=== PATIENT | female | born 1960 | race Caucasian/White ===

== ENCOUNTER 2018-03-17 21:12 | Inpatient (IN) | payer OTHER ==
[~2018-03-17] VITALS: Ht 149.9 cm; Wt 109.3 kg
[~2018-03-17 21:12] MED LIST: AUG500 PO; AZITHROMYCIN IV; CLA10 PO; IPRATROPIUM BROM3 M2 HHN; LAC PO; LEV500 PO; LEVOTHYROXINE0.05 M2 PO; MEDDP PO; PRE20 PO; SING10 PO; SYN5 PO
[2018-03-17 22:26] LABS: BASOPHIL % 0.6 % (0-2); PLATELET COUNT 298 x10^3mcL (130-400)
[2018-03-17 22:28] LABS: RED CELL DISTRIBUTION WIDTH 15.1 % (11.5-14.5)
[2018-03-17 22:40] LABS: CALCIUM 8.9 mg/dL (8.5-10.1); CARBON DIOXIDE 34.8 mmol/L (21-32); CREATININE SERUM 1.6 mg/dL (0.6-1.0); POTASSIUM SERUM 4.1 mmol/L (3.5-5.1)
[2018-03-17 22:45] LABS: ALBUMIN 3.6 g/dL (3.4-5.0); BILIRUBIN TOTAL 0.2 mg/dL (0.20-1.00); TOTAL PROTEIN, SERUM 7.3 g/dL (6.4-8.2)
[2018-03-17 22:49] LABS: LIPASE 100 IU/L (73-393)
[2018-03-17] MEDS ORDERED: ADULT ASPIRIN R81 MG PO (23:04)
[2018-03-17] MEDS ORDERED: GABAPENTIN300 M4 PO (23:04)
[2018-03-17] MEDS ORDERED: NAPRELAN375 MG PO (23:04)
[2018-03-17] MEDS ORDERED: SULFAMETHOXAZOL1 TA3 PO (23:05)
[2018-03-17] MEDS ORDERED: AMOXICILLIN500 MG PO (23:05)
[2018-03-17] MEDS ORDERED: LEVOTHYROXIN0.125 M2 PO (23:05)
[2018-03-17] MEDS ORDERED: ZESTRIL20 MG PO (23:05)
[2018-03-17] MEDS ORDERED: FLOVENT HF0.044 MG/1 INH (23:06)
[2018-03-17] MEDS ORDERED: VENTOLIN H0.09 MG/A1 INH (23:06)
[2018-03-17 23:40] LABS: MAGNESIUM 2.2 mg/dL (1.8-2.4); PHOSPHOROUS 3.5 mg/dL (2.5-4.9)
[2018-03-17 23:41] LABS: CHOLESTEROL/HDL RATIO 4.1
[2018-03-17 23:44] LABS: T3 TOTAL 0.08 ng/mL
[2018-03-17 23:49] LABS: FREE T4 0.16 ng/dL (0.76-1.46)
[2018-03-17 23:53] LABS: FREE THYROXINE INDEX 0.1 ug/dL (1.4-4.5); T4(THYROXINE) < 0.5 ug/dL (4.7-13.3)
[2018-03-18 00:11] VITALS: BP 193/98
[2018-03-18] MEDS ORDERED: HCTZ/LISINOPRIL1 TA1 PO (00:21)
[2018-03-18 00:58] VITALS: BP 193/98
[2018-03-18 04:11] LABS: microscopic required? YES; urine erythrocyte 1+ (NEGATIVE)
[2018-03-18 04:18] LABS: AMPHETAMINE QUAL UR POSITIVE (See below)
[2018-03-18 05:59] VITALS: BP 140/82
[2018-03-18 06:29] LABS: BASOPHIL % 0.2 % (0-2); PLATELET COUNT 307 x10^3mcL (130-400); RED CELL DISTRIBUTION WIDTH 14.4 % (11.5-14.5)
[2018-03-18 06:52] LABS: CALCIUM 8.8 mg/dL (8.5-10.1); CARBON DIOXIDE 33.9 mmol/L (21-32); CREATININE SERUM 1.5 mg/dL (0.6-1.0); POTASSIUM SERUM 4.2 mmol/L (3.5-5.1)
[2018-03-18 09:34] VITALS: BP 141/61
[2018-03-18 13:33] VITALS: BP 147/66
[2018-03-18 17:49] VITALS: BP 149/74
== END 2018-03-18 20:33 | disposition left against medical advice (07) | DRG 140 ==
LOC: ED 21:12 → DU 22:57
PROVIDERS: Emergency Medicine; Internal Medicine
PROC: 5A09357 Assistance with Respiratory Ventilation, Less than 24 Consecutive Hours, Continuous Positive Airway Pressure (ICD-10-PCS; principal; 2018-03-18)
DX: J44.1 Chronic obstructive pulmonary disease with (acute) exacerbation (principal); N17.0 Acute kidney failure with tubular necrosis; J96.21 Acute and chronic respiratory failure with hypoxia; E03.9 Hypothyroidism, unspecified; E78.49 Other hyperlipidemia; R73.03 Prediabetes; J96.22 Acute and chronic respiratory failure with hypercapnia; F15.10 Other stimulant abuse, uncomplicated; Z53.21 Procedure and treatment not carried out due to patient leaving prior to being seen by health care provider; F17.210 Nicotine dependence, cigarettes, uncomplicated; E78.5 Hyperlipidemia, unspecified; D63.8 Anemia in other chronic diseases classified elsewhere; I16.0 Hypertensive urgency; E66.01 Morbid (severe) obesity due to excess calories; Z79.82 Long term (current) use of aspirin; Z99.81 Dependence on supplemental oxygen; Z68.42 Body mass index [BMI] 45.0-49.9, adult; Z88.0 Allergy status to penicillin; Z88.8 Allergy status to other drugs, medicaments and biological substances; Z71.6 Tobacco abuse counseling; Z87.442 Personal history of urinary calculi; Z82.49 Family history of ischemic heart disease and other diseases of the circulatory system; Z79.899 Other long term (current) drug therapy; Z79.51 Long term (current) use of inhaled steroids
CPT/HCPCS: 36600; 83880; 84439; 99406; G0480; J1956; J2405; J2920; J2930; J3475; J3490; J7030; J7613; J7620; J7626; J7644; Q0092

== ENCOUNTER 2019-01-17 11:04 | Inpatient (IN) | payer OTHER ==
[~2019-01-17] VITALS: Ht 149.9 cm; Wt 105.0 kg
[~2019-01-17 11:04] MED LIST changes: +ADULT ASPIRIN R81 MG PO; +AMOXICILLIN500 MG PO; +FLOVENT HF0.044 MG/1 INH; +GABAPENTIN300 M4 PO; +HCTZ/LISINOPRIL1 TA1 PO; +LEVOTHYROXIN0.125 M2 PO; +NAPRELAN375 MG PO; +SULFAMETHOXAZOL1 TA3 PO; +VENTOLIN H0.09 MG/A1 INH; +ZESTRIL20 MG PO
[2019-01-17 11:10] VITALS: Ht 149.9 cm; Wt 105.0 kg
--- NOTE | 2019-01-17 11:25 | NUR ---
PT CAME TO THE ED TODAY WITH CO SOB SINCE THIS AM. PT STATES SHE HAS A HX OF COPD AND IS A CURRENT SMOKER. PT USES AT HOME OXYGEN AND IS ON 2.5 LITERS. PT STATES SHE HAS A COLD AND HAS A HARD TIME " GETTING IT ALL UP." AT THIS TIME PT RESP RATE AT 24RPM AND IS SPEAKING IN BROKEN SPEECH AT THIS TIME. LUNG SOUNDS ARE DIMINISHED THROUGH OUT. PT IS AWAKE AND ALERT. FAMILY AT BEDSIDE. PT HOOKED UP TO FULL MONITORS, EKD BEING DONE AT BEDSIDE, WILL CONTINUE TO MONITOR.
--- NOTE | 2019-01-17 11:40 | NUR ---
BREATHING TX IN PROGRESS
[2019-01-17 11:50] LABS: BASOPHIL % 0.4 % (0-2); PLATELET COUNT 350 x10^3mcL (130-400); RED CELL DISTRIBUTION WIDTH 14.3 % (11.5-14.5)
[2019-01-17 11:59] LABS: CALCIUM 8.8 mg/dL (8.5-10.1); CARBON DIOXIDE 35.6 mmol/L (21-32); CREATININE SERUM 1.1 mg/dL (0.6-1.0); POTASSIUM SERUM 4.5 mmol/L (3.5-5.1)
[2019-01-17 12:03] LABS: ALBUMIN 3.2 g/dL (3.4-5.0); BILIRUBIN TOTAL 0.2 mg/dL (0.20-1.00); TOTAL PROTEIN, SERUM 6.9 g/dL (6.4-8.2)
--- NOTE | 2019-01-17 12:41 | NUR ---
DR BASHIR AT BEDSIDE DISCUSSING RESULTS AND PLAN OF CARE
[2019-01-17] MEDS ORDERED: GABAPENTIN600 M1 PO (12:47)
[2019-01-17] MEDS ORDERED: LIPI20 PO (12:48)
--- NOTE | 2019-01-17 14:09 | NUR ---
REPORT GIVEN THI HOROWITZ ON MS/T FOR FURTHER CARE OF PT. PER DR MCKAY BLANCHARD TO SEND TO MS/T WITHOUT URINE SAMPLE
--- NOTE | 2019-01-17 14:26 | NUR ---
PT EN ROUTE TO MST AT THIS TIME WITH EMT TERE Rahman
[2019-01-17 14:48] VITALS: BP 157/86
--- NOTE | 2019-01-17 14:51 | NUR ---
RECEIVED PT FROM ED VIA DREW. ORIENTED PT TO ROOM AND SURROUNDINGS. IV NOTED TO LFA PATENT AND INTACT. INSTRUCTED PT ON THE USE OF CALL LIGHT FOR ASSISTANCE. ENDORSED PT TO PRIMARY NURSE THI
[2019-01-17 15:27] VITALS: BP 156/74
--- NOTE | 2019-01-17 17:55 | NUR ---
PATIENT IN BED AT THIS TIME. EATING DINNER TRAY. PATIENT COMPLAITS OF MILD WOODS, PRN TYLENOL GIVEN. IV SOLUMEDROL ALSO GIVEN. PATIENT BP SLIGHTLY ELEVATED TO SBP 156, WILL ENDORSE TO ONCOMING NURSE AND WILL CALL DR LAM, UNABLE TO PULL PO LISINOPRIL FROM PYXIS AT THIS TIME. CALL LIGHT IN REACH AT THIS TIME
[2019-01-17 17:58] VITALS: BP 169/92
--- NOTE | 2019-01-17 19:28 | NUR ---
DURING BEDSIDE DALY OFF, CHECKED PATIENT BP WAS 160/90, MAP-112. PATIENT COMPLAINED OF WOODS. DR LAM INFORMED AND RECEIVED ONE TIME ORDER FOR LISINOPRIL. LINDA FOLLOW UP WITH PHARMACY.
[2019-01-17 19:29] VITALS: BP 160/92
--- NOTE | 2019-01-17 20:28 | NUR ---
PATIENT IS ALERT AND ORIENTED X4, NO DIZZINESS NOR HEADACHE. BREATHING EVEN AND UNLABORED,BS EXPIRATORY WHEEZING A/P UPPER LOBES AND DIMINISHED BASES, PATIENT STATES OCC NON PRODUCTIVE COUGH, MILD EXERTIONAL SOB NOTED, O2 AT 2LNC MAINTAINED SAT 96%. DENIED CHEST PAINS, HR=86BPM. NON TELE, MED/SURG. AMBULATORY WITH STEADY SLOW GAIT, NEEDS ANTICIPATED, ABLE TO PARTICIPATE WITH ADL'S. IV SITE RFA PATENT AND INTACT, TAPE SECURED.DENIED PAIN. PATIENT INFORMED ABOUT POC THIS SHIFT. SAFETY PRECAUTIONS MAINTAINED. WILL CONTINUE TO MONITOR.
[2019-01-17 20:42] VITALS: BP 168/85
--- NOTE | 2019-01-17 20:53 | NUR ---
SCHEDULED MEDS ADMINISTERED, PATIENT INFORMED ABOUT ACTIONS AND PURPOSE PRIOR. PATIENT TOOK PILLS WELL. WILL RE-CHECK BP POST LISINOPRIL GIVEN.
[2019-01-17 22:06] VITALS: BP 152/88
--- NOTE | 2019-01-18 00:04 | NUR ---
ROUNDS MADE PATIENT RESTING COMFORTABLY THIS TIME, O2 AT 2LNC MAINTAINED. NO DISTRESS. SAFETY/FALL PRECAUTIONS MAINTAINED. WILL CONTINUE TO MONITOR.
[2019-01-18 05:40] VITALS: BP 134/76
[2019-01-18 06:29] LABS: CALCIUM 8.4 mg/dL (8.5-10.1); CARBON DIOXIDE 30.6 mmol/L (21-32); CHLORIDE SERUM 102 mmol/L (98-107); GFR1 > 60 mL/min; GLUCOSE SERUM 148 mg/dL (74-106); POTASSIUM SERUM 4.9 mmol/L (3.5-5.1); SODIUM SERUM 140 mmol/L (136-145)
--- NOTE | 2019-01-18 06:36 | NUR ---
PATIENT SLEPT GOOD AND RESTED COMFORTABLY DURING THE SHIFT. NO RESP. DISTRESS AT REST, MILD EXERTIONAL SOB NOTED AND VERBALIZED, TOLERATED O2 AT 2LNC WITH SAT 96-98%. HEPLOCK TO RFA PATENT AND INTACT DUAL CAP APPLIED, TAPE SECURED. VOIDED X2 BUT UNABLE TO SAVE SPECIMEN, ADVICED TO CALL NURSE WHEN SHE VOIDS FOR SPECIMEN COLLECTION. SAFETY/FALL PRECAUTION OBSERVED AND MAINTAINED. WILL ENDORSE CONTINUITY OF CARE TO INCOMING NURSE.
[2019-01-18 06:49] LABS: BASOPHIL % 0.1 % (0-2); PLATELET COUNT 378 x10^3mcL (130-400); RED CELL DISTRIBUTION WIDTH 14.3 % (11.5-14.5)
--- NOTE | 2019-01-18 07:25 | NUR ---
BEDSIDE HANDS OFF AND INTRODUCTION PERFORMED WITH INCOMING NURSE THI-CARLOS MANUEL.
--- NOTE | 2019-01-18 07:49 | NUR ---
RECEIVED PATIENT FROM CARLOS MANUEL SANDERSON. PATIENT SEATED AT BEDSIDE. NO COMPLAINTS OF SOB AT THIS TIME. INFORMED PATIENT OF PLAN FOR TODAY AND PATIENT AGREES. WILL WAIT FOR DR RODRIGUEZ AND DR LAM TO COME IN AND SEE PATIENT. PATIENT VERBALIZES UNDERSTANDING, CALL LIGHT IN REACH. PATIENT CLOSE TO NURSES STATION.
[2019-01-18 08:30] LABS: UA SPECIFIC GRAVITY 1.015 (1.005-1.035); microscopic required? YES; urine erythrocyte 1+ (NEGATIVE)
[2019-01-18 09:12] VITALS: BP 146/79
[2019-01-18 15:59] VITALS: BP 124/67
--- NOTE | 2019-01-18 18:10 | NUR ---
PATIENT SEATED UP TO BED, EATING DINNER TRAY. NO COMPLAINTS AT THIS TIME, EXPIRATORY WHEEZES AUDIBLE. PATIENT CONTINUES TO HAVE O2 SAT AROUND 92%. WILL ENDORSE TO ONCOMING NURSE. CALL LIGHT IN REACH.
[2019-01-18 19:54] VITALS: BP 123/67
--- NOTE | 2019-01-18 19:56 | NUR ---
PATIENT RECEIVED IN BED SLEEPING AND SNOORING EASILY AWAKEN WHEN VERBAL STIMULI,SLEEPY STATED BY PATIENT, SPEECH CLEAR. NO RESP. DISTRESS, BREATHING EVEN AND UNLABORED, MILD EXERTIONAL SOB STATED, FOUND ON 2LNC SAT 94-95%, WITH OCCD NON PRODUCTIVE COUGH, BS EXPIRATORY WHEEZING A&P UPPER LOBES AND DIMINISHED AIR EXCHANGE TO LOWER LOBES. ON SITTING POSITION. HEPLOCK TOP RFA CLEAR, TAPE SECURED, DUAL CAP APPLIED. PATIENT IS AMBULATORY WITH SLOW STEADY GAIT. DENIED ANY DISCOMFORTS THIS TIME. PATIENT INFORMED ABOUT PLAN OF CARE THIS EVENING. ALSO UPDATED WHITE BOARD AND INFORMED ABOUT TEST AND GOAL THIS SHIFT. SAFETY/FALL PRECAUTIONS MAINTAINED. WILL CONTINUE TO MONITOR.
--- NOTE | 2019-01-18 21:36 | NUR ---
SCHEDULED MEDS ADMINISTERED, PATIENT INFORMED ABOUT MEDS ACTIONS AND PURPOSE PRIOR. TOOK PILLS WELL. ALSO REQUEST FOR INSOMNIA PILL MEDICATED PRN.
--- NOTE | 2019-01-18 21:37 | NUR ---
PATIENT ACCIDENTALLY PULLED HEPLOCK TO RT FA, INSERTED TO LEFT FA.
[2019-01-19 06:14] VITALS: BP 176/91
--- NOTE | 2019-01-19 06:20 | NUR ---
DR LAM MADE AWARE ABOUT AM YZ=213/91, HTV=361, INFORMED THAT 0900 SCHEDULED LISINOPRIL GIVEN. MD ANGULO.
--- NOTE | 2019-01-19 06:47 | NUR ---
PATIENT SLEPT OFF AND ON DURING THE SHIFT, NO RESP. DISTRESS ENCOUNTERED, O2 AT 2LNC MAINTAINED AND SATURATING BETWEEN 95-97%. HEPLOCK TO LEFT FOREARM FLUSHED WELL WITH NS, SECURED TAPE. ASSISTED OOB TO THE BR WITH SLOW STEADY GAIT AND WITH O2. SAFETY/FALL PRECAUTIONS MAINTAINED. WILL ENDORSE CONTINUITY OF CARE TO INCOMING NURSE.
--- NOTE | 2019-01-19 07:17 | NUR ---
RECEIVED REPORT FROM MARIA E HOROWITZ. PATIENT RESTING COMFORTABLY IN BED WITH ALL NEEDS MET. SALINE LOCK TO LFA IS PATENT AND INTACT. NO REDNESS OR PAIN. PATIENT ON O2 2L NC. NO C/O SOB AND NO DISTRESS NOTED. ALL QUESTIONS AND CONCERNS ADDRESSED.
--- NOTE | 2019-01-19 07:28 | NUR ---
BEDSIDE HANDS OFF AND INTRODUCTION PERFORMED WITH INCOMING NURSE ANDREAS.
[2019-01-19 09:32] VITALS: BP 142/93
[2019-01-19 16:38] VITALS: BP 152/84
[2019-01-19 17:14] VITALS: BP 152/84
--- NOTE | 2019-01-19 19:28 | NUR ---
REPORT GIVEN TO ROCIO HOROWITZ. PATIENT RESTING COMFORTABLY IN BED. IV TO LAC IS PATENT AND INTACT. NO REDNESS OR PAIN. PT ON O2 2L NC. NO C/O SOB AND NO DISTRESS NOTED. ALL QUESTIONS AND CONCERNS ADDRESSED.
--- NOTE | 2019-01-19 20:35 | NUR ---
PT RECIEVED AAO REG RESP NO SOB ON 2L N/C SAT 97%,PT OBESES WITH ACTIVE BOWEL SOUNDS,KEPT CLEAN AND DRY TO TOUCH.IV INFFUSING WELL WITH THE SITE PATENT AND INTACT,HOB,ABDO IS SOFT OBESE WITH ACTIVE BOWEL SOUNDS.CALL LIGHT EASY REACHED AND WILL CONTINUE TO MONITOR.
[2019-01-19 21:02] VITALS: BP 149/87
[2019-01-20 05:55] VITALS: BP 189/83
--- NOTE | 2019-01-20 06:10 | NUR ---
PT WITH C/O OF H/A ARCHING IN NATURE AT THE SCALE OF 5,PT WAS MEDICATED WITH TYLENOL 650 MG PO ORDER AND WILL CONTINUE TO MONITOR.
[2019-01-20 07:02] VITALS: BP 164/88
--- NOTE | 2019-01-20 07:35 | NUR ---
PT RESTING AT THIS TIME,ON 2L N/C SAT 93%,DIMINISHED TO THE LOWER BASES ON RT PROTOCOL,BED IN THE LOW POSITION AND LOCKED,KEPT CLEAN AND DRY TO TOUCH,MADE COMFORTABLE IN BED AND WILL CONTINUE TO MONITOR.
[2019-01-20 09:29] VITALS: BP 167/75
--- NOTE | 2019-01-20 11:05 | NUR ---
RECEIVED BEDSIDE REPORT FROM CARLOS MANUEL CHAN. PT IN BED, WATCHING TV, FAMILY MEMBER BY BEDSIDE. NO ACUTE RESPIRATORY DISTRESS, PAIN, OR DISCOMFORT NOTED. PT EXPRESSED THAT SHE WANTS TO GO HOME ALCIDES. EXPLAINED TO PT THAT D/C ORDERS HAVE BEEN GIVEN, AND PAPERWORK WILL BE PROCESSED ACCORDINGLY. WILL CONTINUE TO MONITOR.
[2019-01-20 11:58] VITALS: BP 167/75
--- NOTE | 2019-01-20 12:55 | NUR ---
PT GIVEN DISCHARGE PACKET. DISCUSSED CURRENT STAY, INCLUDING MEDS, LABS, AND TEACHINGS RE: LACTIC ACID TEST, BP MONITORING, DIET, EXERCISE. ALL D/C FORMS SIGNED. ID BANDS REMOVED, IV REMOVED FROM LAC, 22G, CATH TIP INTACT, SITE NO S/S INFECTION OR BLEEDING. PT THEN TRANSPORTED TO [facility] VIA W/C WHILE ON 2LNC; PT A/A/O X 4, CALM, COOPERATIVE, NO ACUTE RESPIRATORY DISTRESS, PAIN, OR DISCOMFORT NOTED.
== END 2019-01-20 12:55 | disposition home or self-care (01) | DRG 140 ==
LOC: ED 11:04 → MU 12:46
PROVIDERS: Emergency Medicine; ADMIT Internal Medicine
DX: J44.1 Chronic obstructive pulmonary disease with (acute) exacerbation (principal); J96.01 Acute respiratory failure with hypoxia; E66.01 Morbid (severe) obesity due to excess calories; E03.9 Hypothyroidism, unspecified; E78.5 Hyperlipidemia, unspecified; M19.90 Unspecified osteoarthritis, unspecified site; I10 Essential (primary) hypertension; F17.210 Nicotine dependence, cigarettes, uncomplicated; Z99.81 Dependence on supplemental oxygen; Z68.41 Body mass index [BMI] 40.0-44.9, adult; Z88.6 Allergy status to analgesic agent; Z88.0 Allergy status to penicillin; Z87.01 Personal history of pneumonia (recurrent); Z79.899 Other long term (current) drug therapy
CPT/HCPCS: 36600; 99406; G0378; J0132; J0456; J1956; J2060; J2920; J2930; J7030; J7050; J7613; J7620; J7644; Q0092

== ENCOUNTER 2019-07-12 00:27 | Inpatient (IN) | payer OTHER ==
[~2019-07-12] VITALS: Ht 149.9 cm; Wt 113.4 kg
[~2019-07-12 00:27] MED LIST changes: +GABAPENTIN600 M1 PO; +LIPI20 PO
--- NOTE | 2019-07-12 01:25 | NUR ---
PT PRESENTS TO ED WITH C/C PROD COUGH AND CHEST DISCOMFORT X3 DAY. PT STS HX COPD AND USES 2L O2 VIA NC AT HOME 24HRS A DAY. DENIES FEVER. STS GOT A COLD A FEW DAYS AGO AND THE SYMTPOMS BEGAN TO WORSEN. DAUGHTER AT BEDSIDE, STS PATIENTS 02 RAN OUT WHILE IN THE WAITING ROOM. PT
--- NOTE | 2019-07-12 01:26 | NUR ---
DRY COUGH NOTED. PATIENT PLACED ON 6L NC PATIENTS O2 SAT 96%. RT CALLED AT THIS TIME FOR BREATHING TX. PATIENT AAOX4. RR TACHYPENIC 26. CONNECTED TO FULL MONITOR. AWAITING MSE.
--- NOTE | 2019-07-12 01:34 | NUR ---
RT AT BEDSIDE.
[2019-07-12 02:30] LABS: BASOPHIL % 0.1 % (0-2); PLATELET COUNT 393 x10^3mcL (130-400)
[2019-07-12 02:42] LABS: rbc morphology (normal/abnorm) ABNORMAL (NORMAL)
[2019-07-12 02:44] LABS: CALCIUM 9.1 mg/dL (8.5-10.1); CARBON DIOXIDE 37.6 mmol/L (21-32); CREATININE SERUM 1.3 mg/dL (0.6-1.0); POTASSIUM SERUM 4.1 mmol/L (3.5-5.1)
[2019-07-12 02:49] LABS: ALBUMIN 3.4 g/dL (3.4-5.0); BILIRUBIN TOTAL 0.27 mg/dL (0.20-1.00); TOTAL PROTEIN, SERUM 7.1 g/dL (6.4-8.2)
--- NOTE | 2019-07-12 03:49 | NUR ---
PT RESTING IN POSITION OF COMFORT. STS " I FEEL LIKE I CAN BREATHE BETTER NOW."
--- NOTE | 2019-07-12 05:37 | NUR ---
REPORT GIVEN TO CARLOS MANUEL POPE TO ASSUME CARE.
[2019-07-12 06:03] VITALS: BP 149/58
--- NOTE | 2019-07-12 06:13 | NUR ---
PT ARRIVED ONTO UNIT VIA GUERNEY ACCOMPANIED BY ED STAFF. A/OX4. BREATHING EVEN AND UNLABORED ON 6L NC. NO SOB OR RESP DISTRESS NOTED. REPORTS PROD COUGH W/ YELOW SPUTUM. NO COUGH NOTED DURING ASSESSMENT. DENIES CHEST PAIN/PRESSURE. TELE #27 NSR. IV TO THE LH, SALINE LOCK. PATENT AND INTACT. NO REDNESS OR SWELLING NOTED. BLE/BUE TRACE PITTING EDEMA NOTED. PULSES PALPABLE X4. REPORTS MILD HEADACHE AND NAUSEA, BUT TOLERABLE. EXP WHEEZES HEARD BILATERALLY. WHEELCHAIR AT BASELINE. SEIZURE PRECAUTIONS IN PLACE FOR HX OF SEIZURES. PATIENT REPORTS LAST SEIZURE WAS WHEN SHE WAS 11 YRS OLD. ADMITS TO METH USE; LAST USE WAS 3 DAYS AGO PER PT. PT REPORTS SO RESORTS TO METH WHEN SHE RUNS OUT OF ALBUTEROL. ORIENTED PATIENT TO ROOM, CALL LIGHT SYSTEM, AND BED CONTROLS. COMFORT AND SAFETY MEASURES IN PLACE. BED IS LOCKED AND IN THE LOWEST POSITION. REPORTS HEMATURIA, DENIES DSYURIA. BLE ERYTHEMA NOTED. NO OPEN WOUNDS. WILL ENDORSE CARE TO DAY SHIFT RN
[2019-07-12 06:48] VITALS: BP 146/70
--- NOTE | 2019-07-12 08:00 | NUR ---
PATIENT RECEIVED VERY SLEEPY AND DOES NOT APPEAR IN ANY PAIN AT THIS TIME.
[2019-07-12 08:52] VITALS: BP 181/79
--- NOTE | 2019-07-12 10:19 | NUR ---
FOUND PATIENT SITTING IN BED, CRYING AND HOLDING HEAD IN HANDS. PATIENT SAID THAT WOODS IS VERY SEVERE AND ALSO SHE IS VERY SENSITIVE TO LIGHT. SHE REQUESTED TO HAVE LIGHTS OFF. BP CHECKED -143/83( MAP-103), HR-65. DR LAM INFORMED ABOUT PATIENTS CONDITIONS. RECEIVED ORDER FOR HEAD CT NON CONTRAST. ATTENDING NURSE FELICITAS MADE AWARE. WILL MEDICATE PATIENT.
--- NOTE | 2019-07-12 10:40 | NUR ---
PATIENT RECEIVED VERY LETHARGIC AND WITH HISTORY OF RECENT METH USE. IAN JOLLYS DIMINISHED BREATH SOUNDS AND IS GROSSLY OBESE WITH HER HEAD DOWN AND HER CHIN TOUCHING HER CHEST. SHE HAS COMPLAINTS OF PAIN BUT DUE TO THE LETHARGY AND SHE QUICKLY IS FALLING ASLEEP STAFF FELT THAT A NARCOTIC IS UNNECESSARY AND CONTRAINDICATED AT THIS TIME. PATIEUNT HS EDEMA GENERAL TO THE BODY AND THE REDNESS THE WAS REPORTED TO LEGS THIS AM IS NO LONGER PRESENT TO TALK PICTURES OF. PATIENT HAS BEEN WITH WHEELCHAIR AT HOME AND 02 2 LITERS AT HOME SHE WAS GIVEN HER MEDICATIONS AND SHE NOW IS COMPLAINING OF FEELING FUNNY. SHE COULD NOT TELL THE NURSE WITHOUT FALLING ASLEEP AGAIN WHAT SHE WAS FEELING AND STAFF HAD TO KEEP WAKING HER UP TO GIVE THE MEDICATIONS AND TALK ABOUT HER HISTORY. VITALS AT THIS TIME 98.7, 79, 18, 181/79, 99%.
--- NOTE | 2019-07-12 11:08 | NUR ---
CHARGE NURSE CALLED DR LAM FOR COMPLAINTS OF BAD HEADACHE. ORDERS RECEIVED. PATIENT GIVEN TYLENOL FOR PAIN PATIENT IS TOO LETHARGIC AND FALLING ASLEEP TO GIVE ANYTHING STRONGER AT THIS TIME. SHE HAS NO SIGNS OF MENIGITIS SHE HAS HER HEAD TO HER CHEST WITHOUT DISCOMFORT AND IS FALLING ASLEEP AND SNEEDS TO BE SHAKEN TO AWAKE TO GET MEDICATIONS. HER BP IS NOW WNL AND WILL CONTINUE TO MONITOR INDICATED.
--- NOTE | 2019-07-12 12:22 | NUR ---
ATTEMPTED GET ANSWERS ABOUT HER GABAPENTIN BUT PATIENT IS TOO SLEEPY TO ANSWER AT THIS TIME. LET THE PHARMACY KNOW PROGRESS.
[2019-07-12 12:39] VITALS: BP 154/71
[2019-07-12 13:23] LABS: IRON 22 ug/dL (50-170); TOTAL IRON BINDING CAPACITY 507 ug/dL (250-450)
[2019-07-12 13:31] LABS: RED BLOOD CELLS 3.23 M/mm3 (4.10-5.10)
--- NOTE | 2019-07-12 13:47 | NUR ---
PATIENT MORE ALERT NOW AND RESPONDS TO VERBAL QUES. PATIENT HAS BEEN EATTING ASND SHE HAD GOOD RELIEF WITH JUST TYLENOL. WILL CONTINUE TO MONITOR.
--- NOTE | 2019-07-12 14:43 | NUR ---
PATIENT IS SUPPOSE TO GO FOR CT BUT NOW AGAIN SHE IS LETHARGIC AND DIFFICULT TO ARROUSE.
[2019-07-12 17:37] VITALS: BP 154/70
[2019-07-12 18:29] LABS: UA SPECIFIC GRAVITY 1.025 (1.005-1.035); microscopic required? YES; urine erythrocyte 3+ (NEGATIVE)
--- NOTE | 2019-07-12 18:37 | NUR ---
WAS TAKEN TO CT AND RETURNED AND STATES SOB. CALLED FOR BREATHING TREATMENT AND BACK ON THE 6 LITERS OF 02 VIA NASAL CANNULA. PATIENT IS SLOWLY GOING UP ON SATURATION. AWAITING RESULTS OF THE CT AT THIS TIME.
[2019-07-12 18:49] LABS: AMPHETAMINE QUAL UR POSITIVE (See below)
--- NOTE | 2019-07-12 19:25 | NUR ---
RECEIVED PT RESTING IN BED, NO ACUTE DISTRESS NOTED. PT LETHARGIC YET EASY TO AROUSE. HX OF SZ, PRECAUTIONS IN PLACE. TELE #27, NSR W/ DEPRESSED ST SEG, DENIES CP. PT REPORTS CP WITH COUGHING. DENIES PAIN AT THIS TIME. BLE 1+ PITTING EDEMA, BLE RUBOR NOTED ([place]). RESP EVEN AND UNLABORED ON 4LNC, DENIES SOB. PT HAS PRODUCTIVE COUGH. EXP WHEEZE NOTED. ABD SOFT, ROUND, OBESE PT. PT REPORTS HX OF CONSTIPATION. PT VOIDS FREELY, REPORTING BLOOD IN URINE. PT COORELATING THE BLOOD FROM A PREVIOUS HERNIA REPAIR WITH MESH. PT (+) DYSURIA. GENERALIZED WEAKNESS, W/C AT BASELINE. PT REPORTS PAIN UNDER CONTROL. IV SITE PATENT TO THE LT HAND, SALINE LOCKED. NO REDNESS, SWELLING OR PAIN NOTED. ALL COMFORT AND SAFETY MEASURES PROVIDED FOR, CALL LIGHT WITHIN REACH, BED IN LOWEST POSITION, WILL CONTINUE TO MONITOR.
[2019-07-12 20:57] VITALS: BP 138/69
--- NOTE | 2019-07-12 23:15 | NUR ---
MEDICATED PT WITH AMBIEN PER REQUEST FOR INSOMNIA, PT DENIES SOB/CP AT THIS TIME. CALL LIGHT WITHIN REACH, BED IN LOWEST POSITION, WILL CONTINUE TO MONITOR.
--- NOTE | 2019-07-13 05:00 | NUR ---
PT RESTED IN INTERVALS DURING SHIFT, NO ACUTE CHANGES OCCURRING OVERNIGHT. PT REMAINS ON 4LNC HUMIDIFICIED O2. DENIES SOB. PT REMAINS VERY LETHARGIC, PRODCUTIVE COUGH NOTED. IV SITE REMAINS PATENT, NO REDNESS, SWELLING OR PAIN NOTED. ALL COMFORT AND SAFETY MEASURES PROVIDED FOR, CALL LIGHT WITHIN REACH, BED IN LOWEST POSITION, WILL CONTINUE TO MONITOR.
[2019-07-13 05:37] VITALS: BP 144/77
--- NOTE | 2019-07-13 06:30 | NUR ---
INSERTED 24 G IV TO THE LEFT FA, PT TOLERATED WELL. FLUSHING WELL. CALL LIGHT WITHIN REACH, BED IN LOWEST POSITION, WILL CONTINUE TO MONITOR.
[2019-07-13 07:00] LABS: BASOPHIL % 0.1 % (0-2)
--- NOTE | 2019-07-13 07:10 | NUR ---
RECEIVED PT FROM MUSICAL INSTRUMENT MAKER RN. Bhavesh/MACIE. TELE#27. DENIES CHEST PAIN/PRESSURE. RESPIRATIONS EQUAL AND UNLABORED ON 4L NC. DENIES SOB AT THIS TIME. NOTED DRY COUGH. PT DENIES ANY SECRETIONS. PT SITTING UP WITH HOB ELEVATED. BREATHING TREATMENT BEING DONE. PT C/O ABDOMINAL PAIN PRESSURE /10. PT STATES ABDOMINAL PAIN HAS BEEN CONSTANT SINCE HERNIA SURGERY LAST YEAR. DENIES ANY N/V. IV TO LFA SALINE LOCKED. NO REDNESS OR SWELLING NOTED. SEIZURE PRECAUTIONS IN PLACE. WILL CONTINUE TO MONITOR. CALL LIGHT IN REACH. BED IN LOWEST POSITION.
[2019-07-13 07:21] LABS: PLATELET COUNT 406 x10^3mcL (130-400); RED CELL DISTRIBUTION WIDTH 19.9 % (11.5-14.5)
[2019-07-13 07:38] LABS: CALCIUM 8.9 mg/dL (8.5-10.1); CARBON DIOXIDE 35.2 mmol/L (21-32); CREATININE SERUM 1.1 mg/dL (0.6-1.0); POTASSIUM SERUM 4.5 mmol/L (3.5-5.1)
[2019-07-13 09:02] VITALS: BP 132/72
--- NOTE | 2019-07-13 09:56 | NUR ---
PT SITTING IN BED. NO ACUTE DISTRESS NOTED. ADMIN AM MEDS. IV INFUSING WELL, NO REDNESS OR SWELLING. DRESSING CDI. DR. LAM AT BEDSIDE. PER DR. LAM OK TO DISCHARGE PT TODAY. PT STATES RIDE WON'T BE AVAILABLE UNTIL 1400. WILL CONTINUE TO MONITOR. CALL LIGHT IN REACH. BED IN LOWEST POSITION.
--- NOTE | 2019-07-13 12:53 | NUR ---
PT SITTING UP IN BED. PT EATING LUNCH. NO ACUTE RESP DISTRESS NOTED ON 4L NC. PT STATES MY GIRLFRIEND WILL BE HERE BETWEEN 1PM AND 2PM. PT ASKING TO WAIT TO GO OVER DISCHARGE PAPERWORK ONCE GIRLFRIEND IS HERE. WILL CONTINUE TO MONITOR. CALL LIGHT IN REACH. BED IN LOWEST POSITION.
[2019-07-13 12:56] VITALS: BP 131/57
[2019-07-13 13:37] VITALS: BP 118/77
--- NOTE | 2019-07-13 14:01 | NUR ---
PT SITTING UP IN BED. GIRLFRIEND AT BEDSIDE. PT GIVEN DISCHARGE INSTRUCTIONS. PT EDUCATED TO RETURN TO ER IF ANY WORSENING SYMPTOMS OF SOB, FEVER, COUGH OR CHEST PAIN. PT EDUCATED ON PRESCRIPTION AND FOR PREDNISONE, TAMIFLU. PT ENCOURAGED TO TAKE HOME MEDICATIONS PRESCRIBED. PT C/O HAVING HEMATURIA SINCE THE PAST YEAR. PT STATES "I WAS REFERRED TO SPECIALIST BY MY PRIMARY DOCTOR." ENCOURAGED PT TO FOLLOW UP WITH SPECIALIST REGARDING ISSUE. ENCOURAGED PT TO FOLLOW UP WITH PCP WITHIN 1 WEEK OF DISCHARGE. PT AND GIRLFRIEND VERBALIZED UNDERSTANDING. ALL QUESTIONS AND CONCERNS ADDRESSED. IV TO LFA REMOVED CATHETER INTACT. PT TAKEN OFF FLOOR VIA WHEELCHAIR WITH HOME OXYGEN. NO PROBLEMS ENCOUNTERED.
[2019-07-14 12:16] VITALS: Ht 149.9 cm; Wt 113.4 kg
== END 2019-07-13 14:13 | disposition home or self-care (01) | DRG 140 ==
LOC: ED 00:27 → DU 04:03
PROVIDERS: Emergency Medicine; ADMIT Internal Medicine
DX: J44.1 Chronic obstructive pulmonary disease with (acute) exacerbation (principal); J96.01 Acute respiratory failure with hypoxia; Z99.81 Dependence on supplemental oxygen; F41.9 Anxiety disorder, unspecified; G40.909 Epilepsy, unspecified, not intractable, without status epilepticus; E03.9 Hypothyroidism, unspecified; I10 Essential (primary) hypertension; R51 Headache; D64.9 Anemia, unspecified; F17.210 Nicotine dependence, cigarettes, uncomplicated; Z88.0 Allergy status to penicillin; Z88.8 Allergy status to other drugs, medicaments and biological substances; N39.0 Urinary tract infection, site not specified
CPT/HCPCS: 83880; 87804; 99406; G0378; J1956; J2920; J2930; J3535; J7050; J7613; J7620; Q0092

== ENCOUNTER 2019-10-01 15:58 | Inpatient (IN) | payer OTHER, SELFPAY ==
[~2019-10-01] VITALS: Ht 152.4 cm; Wt 97.4 kg
[2019-10-01 16:12] VITALS: Ht 152.4 cm; Wt 97.4 kg
--- NOTE | 2019-10-01 16:55 | NUR ---
FIRST CONTACT WITH PT. PT IS ALERT. NO SEVERE RESP DISTRESS OBSERVED.
[2019-10-01 17:02] LABS: BASOPHIL % 0.4 % (0-2); PLATELET COUNT 345 x10^3mcL (130-400)
[2019-10-01 17:03] LABS: RED CELL DISTRIBUTION WIDTH 18.2 % (11.5-14.5)
--- NOTE | 2019-10-01 17:28 | NUR ---
USE BEDPAN, ABLE TO OBTAIN SMALL URINE SPEC. CONTINUES ALERT. VSS
[2019-10-01 18:01] LABS: ALBUMIN 3.5 g/dL (3.4-5.0); BILIRUBIN TOTAL 0.12 mg/dL (0.20-1.00); CALCIUM 9.1 mg/dL (8.5-10.1); CREATININE SERUM 1.3 mg/dL (0.6-1.0); POTASSIUM SERUM 3.2 mmol/L (3.5-5.1); TOTAL PROTEIN, SERUM 6.9 g/dL (6.4-8.2)
[2019-10-01 18:05] LABS: CARBON DIOXIDE 44.7 mmol/L (21-32)
[2019-10-01 18:06] LABS: C REACTIVE PROTEIN 0.5 mg/dL (<=0.9)
--- NOTE | 2019-10-01 18:11 | NUR ---
PT SITS UP IN HUTSON'S POSITONS POSITION. ALERT. REQUEST TO EAT, ER DR AWARE AND SAID NOT CURRENTLY, DUE TO ABG ABNORMALITY.
[2019-10-01 18:41] LABS: microscopic required? YES; urine erythrocyte 2+ (NEGATIVE)
--- NOTE | 2019-10-01 18:47 | NUR ---
PULSE OXYMETRY SHOWING POOR READING. NEW SAT MONITOR APPLIED TO LEFT 5TH DIGIT. MUCH BETTER READING APPEARS AT 99 %. PT CONTINUES TO SIT UP. ALERT. PT STATES SHE DOESN'T FEEL WELL, FEELS LETHARGIC. SPEAKS IN CLEAR SENTENCES. SKIN DRY.
--- NOTE | 2019-10-01 18:58 | NUR ---
IN LIEU OF PT DISCLOSING SHE HAS COPD, O2 WAS BROUGHT DOWN TO 2 LITER. NASAL CANULA. SAT READS AT 99%. CONTINUES TO SIT UP IN FOLWER'S POSITION
--- NOTE | 2019-10-01 19:06 | NUR ---
REPORT GIVEN TO BACKROOM ASSOCIATE STAFF AT THIS TIME
--- NOTE | 2019-10-01 19:37 | NUR ---
PATIENT SEEN DROWSY, EASILY AROUSED, VERBALLY APPROPIATE. PATIENT IS USING 2 LITERS OXYGEN VIA N/C, SATURATION 99%.
--- NOTE | 2019-10-01 19:48 | NUR ---
PATIENT NHAS MILD DYSPNES AT REST, SKIN IN MOTTLED AND FINGER AND TOES ARE PURPLISH. RESPIRATORY NWAS CALLED TO PUT THE PATIENT ON A BIPAP. PATIENT WILL GO TO T1.
--- NOTE | 2019-10-01 20:42 | NUR ---
REPORT WAS GIVEN TO BRI. PATIENT TRANSPORTED TO ROOM TRAUMA 1.
--- NOTE | 2019-10-01 20:51 | NUR ---
PT TRANSPORTED TO ED BED T1. REPORT RECIEVED FROM CARLOS MANUEL LIRA. PT MOVED IN ORDER TO PLACE PT ON BIPAP PER MD. MOVED TO T1 WITH COVID PRECAUTIONS IN PLACE AND FOR NEGATIVE PRESSURE ROOM. RT RAFY AT BEDSIDE TO PLACE PT ON BIPAP. PT IS AWAKE AND ALERT, RESP E/U, SPEAKING AND CONVERSING IN FULL SENTENCES. REPORTS THAT SHE DOES FEEL TIRED. WILL CONTINUE TO MONITOR.
--- NOTE | 2019-10-01 21:00 | NUR ---
PLACED PATIENT ONTO BIPAP 14/7 RATE 20 FIO2 30. HEART RATE 65 SPO2 89.
--- NOTE | 2019-10-01 21:09 | NUR ---
SPOKE WITH RT RAFY SINCE PT IS COPD, KEEP PT ABOVE 88% O2 SAT ON BIPAP.
--- NOTE | 2019-10-01 21:35 | NUR ---
PT REQUESTED THAT WE CALL SIGNIFICANT OTHER EDUARDO TO GIVE HER AN UPDATE. SPOKE TO EDUARDO ON THE PHONE AND GAVE A BRIEF UPDATE.
--- NOTE | 2019-10-01 22:26 | NUR ---
PT ASSISTED TO BEDSIDE COMMODE AND RETURNED TO [facility] WITH NO INCIDENT. RT NOW AT BEDSIDE TO ADMINISTER MDI TREATMENT.
--- NOTE | 2019-10-01 22:50 | NUR ---
PT NOTED TO BE STANDING AT DOOR OF T1. APPROACHED ROOM AND ASKED PT TO SAFELY GET BACK INTO [place]. PT AMBULATED WITH STEADY GAIT TO SIT BACK IN GURNEY. PPE FRANCY, MYSELF AND RN BRI ASSISTED PT INTO COMFORTABLE HIGH FOWLERS POSITION. RT MIRNA AT BEDSIDE TO CHECK BIPAP. PT CONTINUES TO TOLERATE BIPAP. PT REMINDED TO NOT TO GET OUT OF BED AND TO USE CALL LIGHT IF SHE NEEDS ANYTHING. PT VERBALIZED UNDERSTANDING. PT HAS CALL LIGHT PHYSICALLY IN HAND AT THIS TIME. GUIDED PT THROUGH DEEP BREATHING TECHNIQUES. PT APPEARS TO BE MORE RELAXED S/P TALKING PT THROUGH HER WORRIES.
--- NOTE | 2019-10-01 23:58 | NUR ---
REPORT GIVEN TO CARLOS MANUEL SCANLON IN ICU.
--- NOTE | 2019-10-02 00:38 | NUR ---
RECEIVED PT FROM ED VIA DREW ACCOMPANIED BY RN, EMT AND RT. AOX4, SPEECH CLEAR. PERRLA. EVEN AND UNLABORED RESPIRATIONS, PLACED ON BIPAP BY RT: FIO2 30% RATE 20 IPAP 14 EPAP 7., TOLERATING WELL. DIMINISHED ON AUSCULTATION. PLACED ON CARDIAC MONITORING, READING SR 67, SATTING 98%. PULSES PRESENT, CAP REFILL < 3SECS, NO EDEMA NOTED, SKIN COOL, DRY TO TOUCH, MOTTLED TO BUE/BLE. PERIPHERAL IV TO LEFT HAND PATENT AND INTACT. VOIDS FREELY, ASSISTED WITH BEDPAN, YELLOW URINE NOTED. ABD SOFT, ROUND, OBESE. BOWELS SOUNDS ACTIVE, NO C/O N/V/D OR ABD PAIN. C/O PAIN TO BLE, STATES TAKES GABAPENTIN FOR PAIN, TOLERABLE AT THIS TIME. ORIENTED TO ROOM AND SURROUNDINGS. INSTRUCTED ON USE OF CALL LIGHT WHEN IN NEED OF ASSISTANCE. CONTACT AND DROPLET ISOLATION IN PLACE. BED IN LOWEST POSITION. SIDE RAILS UPX2. CALL LIGHT WITHIN REACH. WILL CONTINUE TO MONITOR.
[2019-10-02 01:06] VITALS: BP 159/84
[2019-10-02 01:24] VITALS: BP 153/87
--- NOTE | 2019-10-02 02:35 | NUR ---
K: 3.2, MD MADE AWARE, ORDERED RECEIVED AND MEDICATION ADMINISTERED. SANDWICH AND WATER PROVIDED. PLACED ON 4LNC AT THIS TIME, TOLERATING WELL SATTING 96%.
--- NOTE | 2019-10-02 03:03 | NUR ---
ASSISTED PT TO BED [place], SMALL AMOUNT OF CLOUDY YELLOW URINE NOTED. PT ON 4LNC SATTING 99%, REFUSING BIPAP AT THIS TIME, NO C/O SOB OR PAIN. WILL CONTINUE TO MONITOR
--- NOTE | 2019-10-02 03:34 | NUR ---
PT RESTING COMFORTABLY IN BED WITH EYES CLOSED. EASILY AROUSABLE. NO ACUTE DISTRESS NOTED. EVEN AND UNLABORED RESPIRATIONS ON 4LNC. SATTING 98%. ON CARDIAC MONITORING READING SR. NO S/S SOB OR PAIN AT THIS TIME. BED IN LOWEST POSITION. SIDE RAILS UPX2. CALL LIGHT WITHIN REACH. WILL CONTINUE TO MONITOR.
[2019-10-02 04:13] VITALS: BP 133/78
--- NOTE | 2019-10-02 05:12 | NUR ---
PT RESTING COMFORTABLY IN BED. NO ACUTE DISTRESS NOTED. C/O SORE THROAT MEDICATED PER EMAR. SCHEDULED MEDICATIONS GIVEN. EVEN AND UNLABORED RESPIRATIONS ON 4LNC, REFUSING BIPAP AT THIS TIME, STATES DOING FINE WITH NASAL CANNULA. SATTING 98%. ON HISTORIAN RESEARCH ASSISTANT READING SR. WILL CONTINUE TO MONITOR.
--- NOTE | 2019-10-02 06:51 | NUR ---
PLACED BACK ON BIPAP, RATE 20 FIO2 30% IPAP 14, EPAP 7. SATTING 95%, TOLERATING WELL. WILL ENDORSE TO ONCOMING SHIFT.
--- NOTE | 2019-10-02 07:57 | NUR ---
SPORTS MEDICINE PHYSICIAN PRESENT AT BEDSIDE.
[2019-10-02 08:15] VITALS: BP 142/81
--- NOTE | 2019-10-02 08:15 | NUR ---
RECEIVED REPORT FROM GHISLAINE DIRECTIONAL BORE OPERATOR NURSE. PT SITTING UPRIGHT IN BED ON BIPAP SP02: 93%. RESPIRATIONS EVEN AND UNLABORED. PT DENIES CHEST PAIN. HR: 67 S1 AND S2 AUSCULTATED. NO MURMUR NOTED. LHAND IV 20G INTACT ON TKO. PT IS ANXIOUS AT TIMES BUT CALM AND COOPERATIVE AT THE MOMENT. SKIN IS WARM/DRY. NO EDEMA NOTED. V/S STABLE, WILL CONTINUE TO MONITOR.
[2019-10-02 08:52] LABS: CALCIUM 9.5 mg/dL (8.5-10.1); CREATININE SERUM 1.2 mg/dL (0.6-1.0); MAGNESIUM 2.2 mg/dL (1.8-2.4); POTASSIUM SERUM 4.1 mmol/L (3.5-5.1)
[2019-10-02 08:54] LABS: BASOPHIL % 0 % (0-2); PLATELET COUNT 409 x10^3mcL (130-400); RED CELL DISTRIBUTION WIDTH 18.4 % (11.5-14.5)
--- NOTE | 2019-10-02 08:55 | NUR ---
DR CAPPS AT BEDSIDE TO ASSESS PATIENT. POC DISCUSSED BEDSIDE. DR CAPPS EDUCATED PATIENT REGARDING CESSATION OF SMOKING AND DISEASE PROCESS OF END STAGE LUNG DISEASE. PATIENT VERBALIZED AN UNDERSTANDING WITH QUESTIONS AND CONSERNS ADDRESSED.
--- NOTE | 2019-10-02 09:29 | NUR ---
LAURA TECH BRAZER TESTER INFORMED DR. LAM THAT PT WANTS TO LEAVE AMA. PT UNCOOPERATIVE AND STATES SHE DOES NOT WANT TO BE HERE. WILL AWAIT ORDERS.
--- NOTE | 2019-10-02 09:30 | NUR ---
CALLED AND SPOKE TO DR LAM ABOUT PT WANTING TO LEAVE AMA. DR LAM NOTIFIED AND MADE AWARE AT THIS TIME OF PT WISHES. PT EDUCATED ON RISKS OF LEAVING AGAINST MEDICAL ADVICE. 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 PT EDUCATED ON IMPORTANCE OF SELF ISOLATING UNTIL RESULTS OF COVID RETURN. PT VERBALIZED UNDERSTANDING AND AGREED TO SELF ISOLATE. PT EDUCATED ON RETURNING TO ER IF S/S WERE TO [place]. PT VERBALIZED UNDERSTANDNING AND STATED " I CAN SELF TREAT MYSELF AT HOME, I DONT NEED TO BE IN THE HOSPITAL. I WANT YOU TO CALL M[facility]IAM TO PICK ME UP". [facility] TO BE CALLED AT THIS TIME
--- NOTE | 2019-10-02 09:41 | NUR ---
BEAU CALLED AND NOTIFIED OF PTS WISHED TO LEAVE AMAOscar YANEZ TO ARRIVE AT HOSPITAL SHORTLY.
--- NOTE | 2019-10-02 10:20 | NUR ---
REMOVED PIV WITH CATHETER INTACT. NO ERTHYEMA/INFLAMMATION/PAIN NOTED. PT EDUCATED AGAIN ON IMPORTANCE OF SELF ISOLATING UPON ARRIVAL TO HOME AND TO CONTINUE WITH HOME 02. PT EDUCATED ON IMPORTANCE OF RETURNING TO ER IF S/S WERE TO WORSEN. PT VERBALIZED UNDERSTANDNING OF INSTRUCTIONS. PT TAKEN DOWN TO LOBBY WITH ALL PERSONAL BELONGINGS IN HAND AND FREE OF ANY APPARENT S/S OF DISTRESS
--- NOTE | 2019-10-02 11:00 | NUR ---
RC'D NOTIFICATION THAT PTS COVID TEST RESULTS CAME BACK NEGATIVE. CALLED AND NOTIFIED MIRIAM OF RESULTS. MIRIAM VERBALIZED UNDERSTANDING.
== END 2019-10-02 10:35 | disposition left against medical advice (07) | DRG 133 ==
LOC: ED 15:58 → IC 22:57
PROVIDERS: Emergency Medicine; ADMIT Internal Medicine
PROC: 5A09357 Assistance with Respiratory Ventilation, Less than 24 Consecutive Hours, Continuous Positive Airway Pressure (ICD-10-PCS; principal; 2019-10-02)
DX: J96.21 Acute and chronic respiratory failure with hypoxia (principal); J18.9 Pneumonia, unspecified organism; J44.0 Chronic obstructive pulmonary disease with (acute) lower respiratory infection; E66.2 Morbid (severe) obesity with alveolar hypoventilation; I10 Essential (primary) hypertension; E03.9 Hypothyroidism, unspecified; J44.1 Chronic obstructive pulmonary disease with (acute) exacerbation; Z88.0 Allergy status to penicillin; N39.0 Urinary tract infection, site not specified; Z88.8 Allergy status to other drugs, medicaments and biological substances; D64.9 Anemia, unspecified; J96.22 Acute and chronic respiratory failure with hypercapnia; Z68.41 Body mass index [BMI] 40.0-44.9, adult; Z53.29 Procedure and treatment not carried out because of patient's decision for other reasons; Z20.828 Contact with and (suspected) exposure to other viral communicable diseases
CPT/HCPCS: 36600; 83880; 85378; 87804; G0378; J0456; J1956; J2920; J2930; J3535; J7050; Q0092

== ENCOUNTER 2020-05-06 00:14 | Emergency (ER) | payer OTHER ==
[~2020-05-06] VITALS: Ht 149.9 cm; Wt 94.8 kg
[2020-05-06 00:29] VITALS: Ht 149.9 cm; Wt 94.8 kg
[2020-05-06] MEDS ORDERED: AMLODIPINE BESYL5 M2 PO (02:10)
[2020-05-06] MEDS ORDERED: TRAMADOL HCL50 MG PO (02:11)
[2020-05-06] MEDS ORDERED: ULTRAM50 MG PO (02:11)
[2020-05-06 02:43] LABS: BASOPHIL % 0.6 % (0-2); PLATELET COUNT 342 x10^3mcL (130-400)
[2020-05-06 02:51] LABS: CALCIUM 8.6 mg/dL (8.5-10.1); CARBON DIOXIDE 36.3 mmol/L (21-32); CREATININE SERUM 1.3 mg/dL (0.6-1.0)
[2020-05-06 02:55] LABS: ALBUMIN 3.4 g/dL (3.4-5.0); BILIRUBIN TOTAL 0.2 mg/dL (0.20-1.00); C REACTIVE PROTEIN 1.1 mg/dL (<=0.9); RED CELL DISTRIBUTION WIDTH 18.9 % (11.5-14.5)
[2020-05-06 04:11] VITALS: BP 139/67
== END 2020-05-06 04:11 | disposition home or self-care (01) ==
LOC: ED 00:14
PROVIDERS: Emergency Medicine
DX: J44.1 Chronic obstructive pulmonary disease with (acute) exacerbation (principal); I10 Essential (primary) hypertension; Z88.0 Allergy status to penicillin; Z20.828 Contact with and (suspected) exposure to other viral communicable diseases
CPT/HCPCS: 83880; 85378; 87804; U0003

== ENCOUNTER 2020-06-11 20:30 | Inpatient (IN) | payer OTHER, SELFPAY ==
[~2020-06-11] VITALS: Ht 152.4 cm; Wt 97.1 kg
[~2020-06-11 20:30] MED LIST changes: +AMLODIPINE BESYL5 M2 PO; +TRAMADOL HCL50 MG PO; +ULTRAM50 MG PO
[2020-06-11 20:32] VITALS: Ht 152.4 cm; Wt 97.1 kg
[2020-06-11 23:29] LABS: BASOPHIL % 0.4 % (0.2-1.3); PLATELET COUNT 363 x10^3mcL (179-408)
[2020-06-11 23:36] LABS: RED CELL DISTRIBUTION WIDTH 17.2 % (12.3-17.7)
[2020-06-11 23:54] LABS: CALCIUM 8.5 mg/dL (8.5-10.1); CREATININE SERUM 1.3 mg/dL (0.6-1.0); POTASSIUM SERUM 3.6 mmol/L (3.5-5.1)
[2020-06-11 23:59] LABS: ALBUMIN 3.1 g/dL (3.4-5.0); BILIRUBIN TOTAL 0.3 mg/dL (0.20-1.00); C REACTIVE PROTEIN 16.1 mg/dL (<=0.9)
[2020-06-12 06:44] LABS: BASOPHIL % 0.5 % (0.2-1.3); PLATELET COUNT 350 x10^3mcL (179-408)
[2020-06-12 06:45] LABS: RED CELL DISTRIBUTION WIDTH 17.4 % (12.3-17.7)
[2020-06-12 06:54] LABS: CALCIUM 8.4 mg/dL (8.5-10.1); CREATININE SERUM 1.3 mg/dL (0.6-1.0); MAGNESIUM 1.9 mg/dL (1.8-2.4); PHOSPHOROUS 2.8 mg/dL (2.5-4.9)
[2020-06-12 09:27] LABS: RED BLOOD CELLS 3.08 M/mm3 (4.10-5.10)
[2020-06-12 09:34] LABS: TOTAL IRON BINDING CAPACITY 428 ug/dL (250-450)
[2020-06-12 10:13] LABS: IRON 25 ug/dL (50-170)
[2020-06-12 10:53] LABS: AMPHETAMINE QUAL UR POSITIVE (See below)
[2020-06-12 17:50] VITALS: BP 116/63
[2020-06-12 20:32] VITALS: BP 121/77
[2020-06-13 05:32] VITALS: BP 141/72
[2020-06-13 06:33] VITALS: BP 139/61
[2020-06-13 07:39] LABS: BASOPHIL % 0.3 % (0.2-1.3)
[2020-06-13 07:47] LABS: PLATELET COUNT 417 x10^3mcL (179-408); RED CELL DISTRIBUTION WIDTH 17.7 % (12.3-17.7)
[2020-06-13 08:06] LABS: CALCIUM 8.6 mg/dL (8.5-10.1); CARBON DIOXIDE 31.9 mmol/L (21-32); CREATININE SERUM 1.2 mg/dL (0.6-1.0); MAGNESIUM 1.8 mg/dL (1.8-2.4); PHOSPHOROUS 3.2 mg/dL (2.5-4.9); POTASSIUM SERUM 4.3 mmol/L (3.5-5.1)
[2020-06-13 08:07] LABS: C REACTIVE PROTEIN 16.8 mg/dL (<=0.9)
[2020-06-13 08:35] LABS: BILIRUBIN DIRECT 0.08 mg/dL (0.0-0.2); BILIRUBIN TOTAL 0.2 mg/dL (0.20-1.00); TOTAL PROTEIN, SERUM 7.5 g/dL (6.4-8.2)
[2020-06-13 09:14] VITALS: BP 105/46
[2020-06-13 12:38] VITALS: BP 123/50
[2020-06-13 16:48] VITALS: BP 119/70
[2020-06-13 21:32] VITALS: BP 109/59
[2020-06-14 05:46] VITALS: BP 123/81
[2020-06-14 07:50] LABS: PLATELET COUNT 460 x10^3mcL (179-408)
[2020-06-14 08:09] LABS: C REACTIVE PROTEIN 11.3 mg/dL (<=0.9); CALCIUM 8.9 mg/dL (8.5-10.1); CARBON DIOXIDE 36.7 mmol/L (21-32); CREATININE SERUM 1.4 mg/dL (0.6-1.0); MAGNESIUM 1.9 mg/dL (1.8-2.4)
[2020-06-14 08:38] LABS: ALBUMIN 2.8 g/dL (3.4-5.0); BILIRUBIN DIRECT 0.09 mg/dL (0.0-0.2); BILIRUBIN TOTAL 0.28 mg/dL (0.20-1.00); TOTAL PROTEIN, SERUM 6.9 g/dL (6.4-8.2)
[2020-06-14 09:36] LABS: BASOPHIL 0 % (0-2); MONOCYTE 10 % (0-7); PLATELET MORPHOLOGY PLATELETS INCREASED; SEGMENTED NEUTROPHILS 74 % (37-75); rbc morphology (normal/abnorm) ABNORMAL (NORMAL)
[2020-06-14 09:58] VITALS: BP 127/50
[2020-06-14 12:58] VITALS: BP 139/69
[2020-06-14 17:23] VITALS: BP 136/88
[2020-06-14 21:00] VITALS: BP 139/67
[2020-06-15 06:49] VITALS: BP 113/57
[2020-06-15 09:47] VITALS: BP 122/64
[2020-06-15 13:47] VITALS: BP 107/55
[2020-06-15 14:00] LABS: BASOPHIL % 0.4 % (0.2-1.3)
[2020-06-15 14:22] LABS: PLATELET COUNT 494 x10^3mcL (179-408); RED CELL DISTRIBUTION WIDTH 17.4 % (12.3-17.7)
[2020-06-15 14:55] LABS: BILIRUBIN DIRECT 0.08 mg/dL (0.0-0.2); BILIRUBIN TOTAL 0.27 mg/dL (0.20-1.00); CREATININE SERUM 1.3 mg/dL (0.6-1.0); MAGNESIUM 1.9 mg/dL (1.8-2.4); PHOSPHOROUS 2.4 mg/dL (2.5-4.9); TOTAL PROTEIN, SERUM 6.9 g/dL (6.4-8.2)
[2020-06-15 15:00] LABS: ALBUMIN 2.8 g/dL (3.4-5.0)
[2020-06-15 17:24] VITALS: BP 122/69
[2020-06-15 21:30] VITALS: BP 139/99
[2020-06-16 06:00] VITALS: BP 109/72
[2020-06-16 12:17] VITALS: BP 100/63
[2020-06-16 17:50] VITALS: BP 124/67
[2020-06-16 21:15] VITALS: BP 109/87
[2020-06-17 05:45] VITALS: BP 110/54
[2020-06-17 08:17] LABS: BASOPHIL % 0.3 % (0.2-1.3)
[2020-06-17 08:34] LABS: CALCIUM 8.6 mg/dL (8.5-10.1); CARBON DIOXIDE 35.1 mmol/L (21-32); CREATININE SERUM 1.1 mg/dL (0.6-1.0); MAGNESIUM 1.9 mg/dL (1.8-2.4); PHOSPHOROUS 3.3 mg/dL (2.5-4.9); POTASSIUM SERUM 3.8 mmol/L (3.5-5.1)
[2020-06-17 08:40] LABS: C REACTIVE PROTEIN 15.1 mg/dL (<=0.9)
[2020-06-17 09:30] VITALS: BP 90/40
[2020-06-17 10:20] LABS: PLATELET COUNT 500 x10^3mcL (179-408); RED CELL DISTRIBUTION WIDTH 17.4 % (12.3-17.7)
[2020-06-17 11:42] VITALS: BP 100/58
[2020-06-17 17:57] VITALS: BP 81/49
[2020-06-17 21:37] VITALS: BP 126/69
[2020-06-18 06:11] VITALS: BP 114/57
[2020-06-18 10:02] VITALS: BP 118/59
[2020-06-18 13:38] LABS: C REACTIVE PROTEIN 9.6 mg/dL (<=0.9); CALCIUM 8.8 mg/dL (8.5-10.1); CARBON DIOXIDE 36.6 mmol/L (21-32); CREATININE SERUM 1.3 mg/dL (0.6-1.0); MAGNESIUM 2.1 mg/dL (1.8-2.4); PHOSPHOROUS 3.3 mg/dL (2.5-4.9); POTASSIUM SERUM 4.1 mmol/L (3.5-5.1)
[2020-06-18 14:07] LABS: PLATELET COUNT 476 x10^3mcL (179-408); RED CELL DISTRIBUTION WIDTH 17.2 % (12.3-17.7)
[2020-06-18 14:26] VITALS: BP 92/54
[2020-06-18 17:24] LABS: BAND NEUTROPHIL 4 % (0-10); BASOPHIL 0 % (0-2); METAMYELOCTE 1 % (0-2); MONOCYTE 3 % (0-7); SEGMENTED NEUTROPHILS 90 % (37-75)
[2020-06-18 17:25] LABS: PLATELET MORPHOLOGY PLATELETS INCREASED; rbc morphology (normal/abnorm) NORMAL (NORMAL)
[2020-06-18 17:37] VITALS: BP 94/49
[2020-06-18 21:58] VITALS: BP 130/58
[2020-06-19 05:59] VITALS: BP 104/50
[2020-06-19 08:51] VITALS: BP 116/58
[2020-06-19 10:13] LABS: PLATELET COUNT 479 x10^3mcL (179-408); RED CELL DISTRIBUTION WIDTH 17.1 % (12.3-17.7)
[2020-06-19 10:16] LABS: BILIRUBIN TOTAL 0.3 mg/dL (0.20-1.00); CALCIUM 8.3 mg/dL (8.5-10.1); CARBON DIOXIDE 35.8 mmol/L (21-32); MAGNESIUM 2.1 mg/dL (1.8-2.4); PHOSPHOROUS 3.6 mg/dL (2.5-4.9); POTASSIUM SERUM 4.3 mmol/L (3.5-5.1)
[2020-06-19 10:25] LABS: ALBUMIN 2.3 g/dL (3.4-5.0); TOTAL PROTEIN, SERUM 5.8 g/dL (6.4-8.2)
[2020-06-19 10:37] LABS: CREATININE SERUM 1.2 mg/dL (0.6-1.0)
[2020-06-19 12:16] VITALS: BP 100/51
[2020-06-19 17:50] LABS: BAND NEUTROPHIL 7 % (0-10); BASOPHIL 0 % (0-2); METAMYELOCTE 1 % (0-2); MONOCYTE 5 % (0-7); SEGMENTED NEUTROPHILS 73 % (37-75)
[2020-06-19 17:52] LABS: rbc morphology (normal/abnorm) ABNORMAL (NORMAL)
[2020-06-19 18:06] VITALS: BP 109/60
[2020-06-19 21:45] VITALS: BP 124/52
[2020-06-20 06:06] VITALS: BP 125/56
[2020-06-20 08:00] VITALS: BP 102/39
[2020-06-20 08:50] LABS: BILIRUBIN TOTAL 0.28 mg/dL (0.20-1.00); C REACTIVE PROTEIN 5.5 mg/dL (<=0.9); CALCIUM 8.4 mg/dL (8.5-10.1); CARBON DIOXIDE 36.3 mmol/L (21-32); CREATININE SERUM 1.3 mg/dL (0.6-1.0); MAGNESIUM 2.2 mg/dL (1.8-2.4); PHOSPHOROUS 3.4 mg/dL (2.5-4.9); POTASSIUM SERUM 4.3 mmol/L (3.5-5.1); TOTAL PROTEIN, SERUM 6.4 g/dL (6.4-8.2)
[2020-06-20 08:54] LABS: ALBUMIN 2.4 g/dL (3.4-5.0)
[2020-06-20 11:35] LABS: PLATELET COUNT 501 x10^3mcL (179-408); RED CELL DISTRIBUTION WIDTH 17.4 % (12.3-17.7)
[2020-06-20 13:20] VITALS: BP 94/44
[2020-06-20 14:50] LABS: ERYTHROCYTE SED RATE 93 mm/hr (0-30)
[2020-06-21 06:43] VITALS: BP 122/58
[2020-06-21 10:18] VITALS: BP 98/47
[2020-06-21 13:38] VITALS: BP 98/51
[2020-06-21 20:55] VITALS: BP 107/56
[2020-06-21 22:20] VITALS: BP 76/43
[2020-06-21 22:55] VITALS: BP 107/65
[2020-06-22 06:38] VITALS: BP 101/39
[2020-06-22 08:26] LABS: BASOPHIL % 0.4 % (0.2-1.3); PLATELET COUNT 399 x10^3mcL (179-408)
[2020-06-22 09:04] LABS: C REACTIVE PROTEIN 10.4 mg/dL (<=0.9); CALCIUM 8.9 mg/dL (8.5-10.1); CARBON DIOXIDE 34.6 mmol/L (21-32); CREATININE SERUM 1.1 mg/dL (0.6-1.0); MAGNESIUM 2.1 mg/dL (1.8-2.4); PHOSPHOROUS 3.3 mg/dL (2.5-4.9); POTASSIUM SERUM 4.4 mmol/L (3.5-5.1)
[2020-06-22 09:13] LABS: RED CELL DISTRIBUTION WIDTH 17.3 % (12.3-17.7)
[2020-06-22 09:32] VITALS: BP 117/52
[2020-06-22 14:10] VITALS: BP 116/61
[2020-06-22 16:44] VITALS: BP 109/58
[2020-06-23 08:37] LABS: BASOPHIL % 0.1 % (0.2-1.3)
[2020-06-23 09:06] LABS: CALCIUM 9.2 mg/dL (8.5-10.1); CARBON DIOXIDE 34.3 mmol/L (21-32); CREATININE SERUM 1.1 mg/dL (0.6-1.0); MAGNESIUM 2.1 mg/dL (1.8-2.4); POTASSIUM SERUM 4.4 mmol/L (3.5-5.1)
[2020-06-23 09:20] LABS: PLATELET COUNT 401 x10^3mcL (179-408); RED CELL DISTRIBUTION WIDTH 17.3 % (12.3-17.7)
[2020-06-23 09:36] VITALS: BP 129/72
[2020-06-23 14:45] VITALS: BP 123/63
[2020-06-23 21:50] VITALS: BP 91/50
[2020-06-24 05:19] VITALS: BP 137/64
[2020-06-24 07:44] LABS: PLATELET COUNT 388 x10^3mcL (179-408)
[2020-06-24 08:40] LABS: C REACTIVE PROTEIN 4.4 mg/dL (<=0.9); CALCIUM 8.8 mg/dL (8.5-10.1); CARBON DIOXIDE 34.1 mmol/L (21-32); CHLORIDE SERUM 99 mmol/L (98-107); GFR1 > 60 mL/min; MAGNESIUM 2.1 mg/dL (1.8-2.4); PHOSPHOROUS 3.3 mg/dL (2.5-4.9); POTASSIUM SERUM 4.5 mmol/L (3.5-5.1); SODIUM SERUM 138 mmol/L (136-145)
[2020-06-24 08:42] LABS: GLUCOSE SERUM 56 mg/dL (74-106)
[2020-06-24 15:24] LABS: ATYPICAL LYMPH 3 %; BAND NEUTROPHIL 8 % (0-10); MONOCYTE 9 % (0-7); SEGMENTED NEUTROPHILS 65 % (37-75)
[2020-06-24 15:25] LABS: METAMYELOCTE 1 % (0-2); MYELOCYTE 3 % (0-2)
[2020-06-24 15:26] LABS: PLATELET MORPHOLOGY PLATELETS NORMAL; rbc morphology (normal/abnorm) ABNORMAL (NORMAL)
== END 2020-06-24 08:52 | disposition left against medical advice (07) | DRG 137 ==
LOC: ED 20:30 → DU 23:43
PROVIDERS: Emergency Medicine; Family Medicine; ADMIT Internal Medicine; ATTEND Internal Medicine
PROC: XW033E5 Introduction of Remdesivir Anti-infective into Peripheral Vein, Percutaneous Approach, New Technology Group 5 (ICD-10-PCS; 2020-06-12)
PROC: 02HV33Z Insertion of Infusion Device into Superior Vena Cava, Percutaneous Approach (ICD-10-PCS; principal; 2020-06-13)
PROC: B548ZZA Ultrasonography of Superior Vena Cava, Guidance (ICD-10-PCS; 2020-06-13)
PROC: 5A09357 Assistance with Respiratory Ventilation, Less than 24 Consecutive Hours, Continuous Positive Airway Pressure (ICD-10-PCS; 2020-06-13)
PROC: 5A09357 Assistance with Respiratory Ventilation, Less than 24 Consecutive Hours, Continuous Positive Airway Pressure (ICD-10-PCS; 2020-06-14)
PROC: 5A09357 Assistance with Respiratory Ventilation, Less than 24 Consecutive Hours, Continuous Positive Airway Pressure (ICD-10-PCS; 2020-06-15)
PROC: 5A09357 Assistance with Respiratory Ventilation, Less than 24 Consecutive Hours, Continuous Positive Airway Pressure (ICD-10-PCS; 2020-06-16)
PROC: XW13325 Transfusion of Convalescent Plasma (Nonautologous) into Peripheral Vein, Percutaneous Approach, New Technology Group 5 (ICD-10-PCS; 2020-06-18)
DX: U07.1 COVID-19 (principal); J96.21 Acute and chronic respiratory failure with hypoxia; J12.82 Pneumonia due to coronavirus disease 2019; Z53.29 Procedure and treatment not carried out because of patient's decision for other reasons; E03.9 Hypothyroidism, unspecified; E44.1 Mild protein-calorie malnutrition; Z68.41 Body mass index [BMI] 40.0-44.9, adult; I10 Essential (primary) hypertension; E78.5 Hyperlipidemia, unspecified; Z82.49 Family history of ischemic heart disease and other diseases of the circulatory system; F17.200 Nicotine dependence, unspecified, uncomplicated; J96.22 Acute and chronic respiratory failure with hypercapnia; F15.10 Other stimulant abuse, uncomplicated; D63.8 Anemia in other chronic diseases classified elsewhere; J44.0 Chronic obstructive pulmonary disease with (acute) lower respiratory infection; Z88.0 Allergy status to penicillin; Z88.8 Allergy status to other drugs, medicaments and biological substances
CPT/HCPCS: 36600; 82962; 83880; 85378; 87804; 97110-GP; 97530-GP; G0378; J0690; J1100; J1650; J1940; J1956; J3370; J3535; J7030; J7050; U0003